=== PATIENT | male | born 1980 | race Two or more races ===

== ENCOUNTER 2021-12-19 07:20 | Emergency (ER) | payer BC ==
[~2021-12-19] VITALS: Ht 175.3 cm; Wt 81.6 kg
[2021-12-19] MEDS ORDERED: IBUPROFEN 400 MG TABLET PO ONE (08:00)
[2021-12-19] MEDS ORDERED: IBUPROFEN 400 MG TABLET ONE (08:45)
[2021-12-19] MEDS ORDERED: KETOROLAC TROMETHAMINE INJ 30 MG/ML VIAL ONE (09:18)
[2021-12-19] MEDS ORDERED: KETOROLAC TROMETHAMINE INJ 60 MG/2 ML VIAL IM ONE (09:30)
--- NOTE | 2021-12-19 09:42 | NUR ---
Patient discharged to home in stable condition. Written and verbal after care instructions given. Patient verbalizes understanding of instruction.
[2021-12-19 09:44] VITALS: BP 143/80
== END 2021-12-19 09:45 | disposition home or self-care (01) ==
LOC: ER 07:26
DX: S63.591A Other specified sprain of right wrist, initial encounter (principal); S00.31XA Abrasion of nose, initial encounter; S09.90XA Unspecified injury of head, initial encounter; F15.10 Other stimulant abuse, uncomplicated; F11.10 Opioid abuse, uncomplicated; V29.49XA Motorcycle driver injured in collision with other motor vehicles in traffic accident, initial encounter; Y93.55 Activity, bike riding; Y92.89 Other specified places as the place of occurrence of the external cause; Y99.8 Other external cause status
CPT/HCPCS: 99285; 70450; 96372; 72131; 73110; 80307; J1885